=== PATIENT | male | born 1995 | race Caucasian/White ===

== ENCOUNTER → 2016-07-17 | Outpatient (CLI) | payer BC ==
[2016-07-17 17:04] LABS: BASOPHILS % (AUTO) 0 % (0-2); EOSINOPHILS # (AUTO) 0.2 10^3uL; EOSINOPHILS % (AUTO) 3 % (0-4); LYMPHOCYTES # (AUTO) 1.5 X10^3; MEAN CORPUSCULAR HEMOGLOBIN 28.1 PG (26.0-34.0); MEAN CORPUSCULAR HGB CONC 34.5 g/dL (31.0-37.0); MEAN CORPUSCULAR VOLUME 82 FL (80-100); MEAN PLATELET VOLUME 9.9 FL (6.0-9.5); MONOCYTES # (AUTO) 0.5 X10^3; MONOCYTES % (AUTO) 8 % (3-11); NEUTROPHILS # (AUTO) 3.9 X10^3; NEUTROPHILS % (AUTO) 65 % (51-67); PLATELET COUNT 221 10^3uL (150-450); WHITE BLOOD COUNT 6.01 10^3uL (4.0-11.0)
[2016-07-17 17:16] LABS: ALBUMIN 4.8 g/dL (3.4-5.0); ALKALINE PHOSPHATASE 80 U/L (38-126); ANION GAP 17.1 MEQ/L (3-15); BUN/CREATININE RATIO 15 (10-20); CALCULATED IONIZED CALCIUM 3.9 mg/dL (3.8-4.6)
[2016-07-17 17:44] LABS: ERYTHROCYTE SEDIMENTATION RT* 1 mm/hr (0-12)
[2016-07-22 18:08] LABS: FRANCISELLA TULARENSIS AB <1:20
== END ==
LOC: LAB 16:42
PROVIDERS: ATTEND Nurse Practitioner
DX: R53.83 Other fatigue (principal); A77.0 Spotted fever due to Rickettsia rickettsii
CPT/HCPCS: 36415; 80053; 85025; 85652; 86000; 86140; 86663; 86664; 86665; 86666; 86757

== ENCOUNTER → 2016-07-17 | Outpatient (CLI) | payer BC ==
[2016-07-17 16:42] VITALS: BP 137/94
--- NOTE | 2016-07-17 16:42 | Urgent Care T Sheet Gen (E) ---
Intake General Temperature (Fahrenheit): 98.1 Pulse: 57 Blood Pressure Systolic: 137 Blood Pressure Diastolic: 94 Respirations: 18 SPO2: 97 Chief Complaint: UC Pain Description of Symptoms Comes in with mom for left neck pain and feeling fatigued. No sore throat- no nasal discharge or cough. C/O headache at times, No vomiting no diarrhea. No reported injury or trauma. Admits to hunting last week in [place] and pulled two ticks off his head and belly. No rashes no other complaint until today left neck painful and swollen, fatigued. Home from [facility] with Mom and Mom concerned about mono. He's been tired and sleeping alot last 3 days. No other health issues. No joint pain and stiffness, no weakness. No rashes reported. No high fevers or chills or body aches, denies any cat scratches. no other reported illnesses. He is most generally very healthy Source: Family (Mom here), Patient History of Present Illness Onset & Duration: Weeks (x1) Timing: Still present Severity: Mild Recent Trauma: No Allergies: Coded Allergies: No Known Drug Allergies (Unverified , 07/17/16) Additional Comment Takes Ritalin Respiratory Constitutional Symptoms: No Fever, Malaise EENTM: Other (left neck pain and swelling) Respiratory: No symptoms reported Cardiovascular: No symptoms reported Gastrointestinal/Abdominal: No symptoms reported Genitourinary: No symptoms reported Musculoskeletal: No symptoms reported Skin: No symptoms reported All Other Systems Reviewed Remaining Systems: All other systems reviewed with negative findings Past Lppcdxk-Yogyye-Dqorrs Hx Patient's Social History Alcohol Use: Denies Use Recreational Drug Use: Denies Use Physical Exam Physical Exam General Appearance: WD/WN No apparent distress Eyes, Ears, Nose, Throat Ex: PERRL/EOMI Normal ENT inspection TMs normal Pharynx normal Other (examined head and no other ticks seen- Mother in room looking as well) Neck Exam: Supple Normal thyroid Lymphadenopathy (left neck swollen markedly, tender to turn head) Respiratory Exam: Lungs clear Normal breath sounds No respiratory distress No accessory muscles usedNo Accessory muscle use, No Wheezes Cardiovascular Exam: Regular rate, rhythm No murmur GI/ Exam: Non tender No organomegaly Normal bowel soundsNo Tenderness, No Guarding, No Splenomegaly Back Exam: Normal Inspection No CVA tenderness Skin Exam: Normal color Warm/dry/intact No rashes Lymphatic Exam: No Axilla node tender (R), No Axilla node tender (L), No Inguinal node tender (R), No Inguninal node tender (L) Progress/Orders Lab Results Labs Results: [place] (negative), Rapid Strep (negative) Departure Urgent Care Impression Chief Complaint: Pain Impression: Primary Impression: Lymphadenopathy Additional Impression: Tick bite of head Qualified Code: S00.96XA - Insect bite (nonvenomous) of unspecified part of head, initial encounter Departure Disposition: HOME OR SELF-CARE Condition: Stable Referrals: HUNTER SHAW MD (PCP) Additional Instructions: Long talk with Mom- Tylenol for pain or fever- rest hydrate Spoke with Dr Ryan- due to exposure and tick bite will check labs: [place] Erlichiosis EBV IGM, IGG CBC CMP Sed rate CRP [place] spotted fever titer May need ultrasound? Doxycycline 100mg po BID x 7 days- called to [facility] Will get results and call to Mom-this was done and so far labs were normal- awaiting other send outs Notified Dr Shaw office as well. He will be seen 07-18-16 at 3pm for a follow up. They agree to plan of care End of report . ADARSH RAGSDALE APRN () Jul 17, 2016 16:42
== END ==
LOC: MHUC 15:51
PROVIDERS: ATTEND Nurse Practitioner
DX: R59.1 Generalized enlarged lymph nodes (principal); S00.96XA Insect bite (nonvenomous) of unspecified part of head, initial encounter; W57.XXXA Bitten or stung by nonvenomous insect and other nonvenomous arthropods, initial encounter
CPT/HCPCS: 86403; 87880; 99213